=== PATIENT | female | born 1960 | race Caucasian/White ===

== ENCOUNTER → 2017-08-23 | Outpatient (CLI) | payer BC ==
--- NOTE | 2017-08-23 14:12 | MM ---
Reason for exam: screening (asymptomatic). Baseline mammogram. History: Patient is postmenopausal and is nulliparous. Physical Findings: Nurse Summary: 1cm nodule in the left breast at 12 o'clock (nurse eduin). MG 3D Screening Mammo W/Cad Bilateral CC and MLO view(s) were taken. The breast tissue is heterogeneously dense. This may lower the sensitivity of mammography. No suspicious abnormality. These results were verbally communicated with the patient and result sheet given to the patient on 08/23/17. ASSESSMENT: Negative, BI-RAD 1 RECOMMENDATION: Routine screening mammogram of both breasts in 1 year.
--- NOTE | 2017-08-23 16:00 | US ---
EXAMINATION TYPE: US transvaginal DATE OF EXAM: 08/23/2017 COMPARISON: NONE CLINICAL HISTORY: N85.00 Endometrial. Patient has a history of endometriosis. TECHNIQUE: Transvaginal (TV) Date of LMP: 4-5 years ago EXAM MEASUREMENTS: Uterus: 12.3 x 8.5 x 10.7 cm Endometrial Stripe: unable to visualize clearly Right Ovary: unable to visualize Left Ovary: unable to visualize 1. Uterus: Anteverted extremely heterogenous, multiple probable fibroids with largest at left fund us = 5.2 x 4.8 x 5.5cm 2. Endometrium: unable to clearly identify to due heterogenous myometrium 3. Right Ovary: Obscured by overlying bowel gas 4. Left Ovary: Obscured by overlying bowel gas 5. Bilateral Adnexa: appears wnl 6. Posterior cul-de-sac: wnl IMPRESSION: Enlarged and multilobulated diffusely heterogenous uterus most commonly relates to jackeline us uterine leiomyomas with some appearing intramural and others pedunculated and possibly subserosal. These obscure the endometrium. Ovaries are not visualized. Enhanced pelvic MR could be considered fo r further evaluation.
--- NOTE | 2017-08-23 19:46 | ECHOF ---
Referral Reason:R01.1 cardiac murmur MEASUREMENTS -------- HEIGHT: 180.3 cm WEIGHT: 122.5 kg BP: RVIDd: 3.0 cm (< 3.3) IVSd: 1.2 cm (0.6 - 1.1) LVIDd: 4.1 cm (3.9 - 5.3) LVPWd: 1.2 cm (0.6 - 1.1) IVSs: 1.5 cm LVIDs: 2.7 cm LVPWs: 1.5 cm LAESV Index (A-L): 20.77 ml/m Ao Diam: 3.2 cm (2.0 - 3.7) AV Cusp: 1.1 cm (1.5 - 2.6) LA Diam: 3.5 cm (2.7 - 3.8) MV EXCURSION: 16.659 mm (> 18.000) MV EF SLOPE: 79 mm/s (70 - 150) MV E Thomas: 0.91 m/s MV DecT: 274 ms MV A Thomas: 0.96 m/s MV E/A Ratio: 0.95 AV maxP.38 mmHg AV meanP.05 mmHg RAP: 5.00 mmHg RVSP: 14.31 mmHg FINDINGS -------- Sinus rhythm. This was a technically adequate study. The left ventricular size is normal. There is mild concentric left ventricular hypertrophy. Overa ll left ventricular systolic function is normal with, an EF between 55 - 60 %. The right ventricle is normal in size and function. Normal LA size by volume 22+/-6 ml/m2. The right atrium is normal in size. There is moderate aortic valve sclerosis. There is moderate aortic stenosis present. Peak/mean gr adient across the Aortic Valve is 34.38mmHg / 20.05mmHg. The mitral valve leaflets are mildly thickened. Mild mitral regurgitation is present. Trace tricuspid regurgitation present. Right ventricular systolic pressure is normal at < 35 mmHg. There is no evidence of pulmonary hypertension. The pulmonic valve was not well visualized. There is no pulmonic regurgitation present. The aortic root size is normal. Normal inferior vena cava with normal inspiratory collapse consistent with estimated right atrial pre ssure of 5 mmHg. There is no pericardial effusion. CONCLUSIONS -------- 1. Sinus rhythm. 2. This was a technically adequate study. 3. The left ventricular size is normal. 4. There is mild concentric left ventricular hypertrophy. 5. Overall left ventricular systolic function is normal with, an EF between 55 - 60 %. 6. Normal LA size by volume 22+/-6 ml/m2. 7. There is moderate aortic valve sclerosis. 8. There is moderate aortic stenosis present. 9. Peak/mean gradient across the Aortic Valve is 34.38mmHg / 20.05mmHg. 10. The mitral valve leaflets are mildly thickened. 11. Mild mitral regurgitation is present. 12. Trace tricuspid regurgitation present. 13. Right ventricular systolic pressure is normal at < 35 mmHg. 14. The pulmonic valve was not well visualized. 15. There is no pulmonic regurgitation present. 16. The aortic root size is normal. 17. There is no pericardial effusion. VICE PRESIDENT AND PORTFOLIO MANAGER: Messi Conn RDCS
== END | disposition home or self-care (01) ==
LOC: RADMAMWWP 13:22
PROVIDERS: ATTEND Family Medicine
DX: Z12.31 Encounter for screening mammogram for malignant neoplasm of breast (principal); N85.2 Hypertrophy of uterus; I08.1 Rheumatic disorders of both mitral and tricuspid valves
CPT/HCPCS: 76830; 77063; 77067; 93306

== ENCOUNTER → 2017-10-04 | Outpatient (CLI) | payer BC ==
[2017-10-04 14:33] LABS: HCT 38.3 % (34.0-46.0); HGB 12.8 gm/dL (11.4-16.0); MCH 28.7 pg (25.0-35.0); MCHC 33.3 g/dL (31.0-37.0); MCV 86.2 fL (80.0-100.0); Mean Platelet Volume 6.7; Platelet Count 251 k/uL (150-450); RBC 4.44 m/uL (3.80-5.40); RDW 13.5 % (11.5-15.5); WBC 5.4 k/uL (3.8-10.6)
[2017-10-04 14:37] LABS: Anion Gap 7 mmol/L; Blood Urea Nitrogen 16 mg/dL (7-17); Carbon Dioxide 27 mmol/L (22-30); Chloride 105 mmol/L (98-107); Potassium 4.6 mmol/L (3.5-5.1); Sodium 139 mmol/L (137-145)
== END | disposition home or self-care (01) ==
LOC: LABPAT 13:11
PROVIDERS: ATTEND Internal Medicine Interventional Cardiology
DX: Z01.812 Encounter for preprocedural laboratory examination (principal); I35.0 Nonrheumatic aortic (valve) stenosis
CPT/HCPCS: 36415; 80051; 82565; 84520; 85027

== ENCOUNTER → 2017-10-15 | Day surgery (SDC) | payer BC ==
[2017-10-09 09:14] VITALS: BMI 36.3
[~2017-10-15] MED LIST: ALPRAZolam 0.25 MG TAB PO PRN; ASPIRIN 325 MG TAB PO STA; ASPIRIN 81 MG ONE; IV FLUID CONTINUATION 950 ML IV ONE; MIDAZOLAM 2 MG/2 ML VIAL IV ONE; MIDAZOLAM 2 MG/2 ML VIAL ONE; NITROGLYCERIN SL TABS 0.4 MG TAB SUBLINGUAL PRN; SODIUM CHLORIDE 0.9% 1,000 ML in EMPTY BAG 1 BAG IV ONE; fentaNYL (PF) 50 MCG/ML 2 ML AMP ONE
[2017-10-15 07:02] VITALS: TEMP 98.8
[2017-10-15 07:06] LABS: Glucose,Whole Blood 84 mg/dL (75-99)
[2017-10-15] MEDS: BENZOCAINE SPRAY 1 CAN MUCOUS MEM ONE ×2 (07:30→07:34)
[2017-10-15] MEDS: fentaNYL (PF) 50 MCG/ML 2 ML AMP IV ONE ×2 (07:37→07:43)
[2017-10-15] MEDS: MIDAZOLAM 2 MG/2 ML VIAL IV ONE ×2 (07:39→07:41)
[2017-10-15 07:52] VITALS: BP 115/61; PULSE 58; RESP 16
--- NOTE | 2017-10-15 08:44 | ECHOT ---
TRANSESOPHAGEAL ECHOCARDIOGRAM DATE OF SERVICE: October 15, 2017 PERFORMING PHYSICIAN: Torsten Chatterjee MD, television actor. PROCEDURE PERFORMED: Transesophageal echocardiogram. INDICATION: This is a pleasant 57-year-old female patient who was diagnosed recently with moderate aortic stenosis. On physical examination, she had very prominent murmur consistent with at least moderate to severe aortic stenosis with severe decrease in the intensity of S2. Because of that, we decided to pursue with transesophageal echocardiogram as well as heart catheterization. COMPLICATION: None. LEVEL OF SEDATION: Moderate, sedation length of 10 minutes. PROCEDURE DESCRIPTION: After obtaining an informed consent, explaining the procedure, benefits, risks, complications and alternatives, the patient was brought to the transesophageal echocardiogram suite. A pulse oximetry and heart rate monitors were attached to the patient prior to the procedure. The patient's throat was sprayed using lidocaine locally. Following that, the patient was turned into left lateral position. A bite guard was placed and the patient was then sedated with the above doses of Versed and fentanyl in divided doses. Following that, the transesophageal echocardiogram probe was advanced through the bite guard into the mid esophagus where 2-D echocardiogram images as well as color Doppler images of various cardiac structures were obtained. We evaluated the interatrial septum using 2-D echocardiogram, color Doppler, and contrast study. The procedure was completed. There were no complications. FINDINGS: The left ventricular dimension and systolic function appeared to be within normal limits. The ejection fraction appeared to be in the range of 55% to 60% with normal wall motion. The right ventricle is mildly dilated with normal function. The left atrium is dilated. The left atrial appendage appeared to be free from any thrombus. The interatrial septum appeared to be intact. The aortic valve is trileaflet valve and not bicuspid valve with evidence of moderate aortic stenosis by planimetry with an aortic valve area of 1.5 centimeter square. I could not get good gradient transgastric and I have to do the gradient by surface echo and we get a peak gradient of 41 and mean of 24 mmHg. Normal tricuspid valve and pulmonic valve. The mitral valve seems to be also thickened with moderate MR. CONCLUSION: 1. Normal left ventricular dimension and systolic function. 2. Mildly dilated right ventricle with normal function. 3. Normal left atrial appendage without any evidence of thrombus. 4. Intact interatrial septum without any evidence of shunt. 5. Trileaflet aortic valve with evidence of aortic sclerosis and moderate stenosis by planimetry. The gradient by surface echo was in the moderate range and was 24 mmHg. 6. Thickened mitral valve leaflets with moderate MR as well. 7. Moderate tricuspid valve and pulmonic valve. 8. No evidence of pericardial effusion. MMODL / IJN: [id number] /
== END | disposition home or self-care (01) ==
LOC: CATHCVL 06:25
PROVIDERS: ATTEND Internal Medicine Interventional Cardiology
DX: I08.0 Rheumatic disorders of both mitral and aortic valves (principal); Z82.49 Family history of ischemic heart disease and other diseases of the circulatory system; Z79.899 Other long term (current) drug therapy
CPT/HCPCS: 93312; 93320; 93325; J2250; J3010

== ENCOUNTER 2020-02-12 16:01 | Emergency (ER) | payer BC, OTHER ==
--- NOTE | 2020-02-12 16:32 | ED ---
SOB HPI - General Chief Complaint: Shortness of Breath Stated Complaint: Lightheaded,SOB Time Seen by Provider: 02/12/20 16:08 Source: patient Mode of arrival: ambulatory Limitations: no limitations - History of Present Illness Initial Comments: Patient is 59-year-old female who is, in with a chief complaint of shortness of breath and lightheadedness. Patient states for the past month she did having intermittent palpitations along with diaphoretic episodes. She reports particularly over the last week she has developed intermittent episodes of ligh theadedness and they can occur either at rest or exertion. However, she never actually had a syncopal episode. She reports shortness of breath during the same. We are she can "not getting enough air". She denies any chest pain or pressure. She denies any back pain and abdominal pain nausea vomiting diarrhea. Denies one-sided weakness or paresthesias. Denies any visual disturbances or headaches. She reports history of aortic stenosis and a transesophageal echocardiogram in 2018. Denies history of smoking, COPD or asthma. - Related Data Home Medications Medication Instructions Recorded Confirmed Levothyroxine Sodium [Tirosint] 125 mcg PO DAILY 10/09/17 02/12/20 Acetaminophen [Tylenol] 2,000 mg PO BID 02/12/20 02/12/20 Cholecalciferol [Vitamin D3 (25 1,000 unit PO DAILY 02/12/20 02/12/20 Mcg = 1000 Iu)] Allergies Allergy/AdvReac Type Severity Reaction Status Date / Time No Known Allergies Allergy Verified 02/12/20 17:02 Review of Systems ROS Statement: Those systems with pertinent positive or pertinent negative responses have been documented in the HPI. ROS Other: All systems not noted in ROS Statement are negative. Past Medical History Past Medical History: Thyroid Disorder Additional Past Medical History / Comment(s): hx heart murmur, PCOS, Last Myocardial Infarction Date:: unknown History of Any Multi-Drug Resistant Organisms: None Reported Additional Past Surgical History / Comment(s): thyroidectomy,myoectomy, occasional vertigo Past Anesthesia/Blood Transfusion Reactions: No Reported Reaction Additional Past Anesthesia/Blood Transfusion Reaction / Comment(s): occasional vertigo Past Psychological History: ADD/ADHD, Depression Smoking Status: Never smoker Past Alcohol Use History: Occasional Past Drug Use History: None Reported - Past Family History Mother Family Medical History: No Reported History General Exam Limitations: no limitations General appearance: alert, in no apparent distress, obese Head exam: Present: atraumatic, normocephalic, normal inspection Eye exam: Present: normal appearance, PERRL, EOMI Pupils: Present: normal accommodation ENT exam: Present: normal exam, normal oropharynx, mucous membranes moist, TM's normal bilaterally, normal external ear exam Neck exam: Present: normal inspection, full ROM. Absent: tenderness, lymphadenopathy Respiratory exam: Present: normal lung sounds bilaterally. Absent: respiratory distress, wheezes, rales, rhonchi, stridor, chest wall tenderness, accessory muscle use Cardiovascular Exam: Present: regular rate, normal rhythm, systolic murmur. Absent: bradycardia, tachycardia, normal heart sounds, diastolic murmur GI/Abdominal exam: Present: soft. Absent: distended, tenderness, guarding, rebound Extremities exam: Present: normal inspection, full ROM, normal capillary refill, other. Absent: tenderness, pedal edema, joint swelling, calf tenderness Back exam: Present: normal inspection, full ROM. Absent: tenderness, CVA tenderness (R), CVA tenderness (L), muscle spasm, paraspinal tenderness, vertebral tenderness Neurological exam: Present: alert, oriented X3, normal gait Psychiatric exam: Present: normal affect, normal mood Skin exam: Present: warm, dry, intact, normal color Course Vital Signs 02/12/20 16:03 Temperature 98.9 F Pulse Rate 89 Respiratory 24 Rate Blood Pressure 121/79 O2 Sat by Pulse 99 Oximetry - Reevaluation(s) Reevaluation #1: 02/12/20 18:57 Medical record reviewed Medical Decision Making - Medical Decision Making 59-year-old female with history of aortic stenosis presenting to emergency Department with a chief complaint of shortness of breath and lightheadedness. On physical examination, patient is not in any respiratory distress and is otherwise well-appearing. Chest x-ray showed minimal atelectasis. CBC CMP is unremarkable. Coags within normal limits. Initial troponin is negative. D- dimer is negative as well. I suspect the lightheaded episodes are secondary to her aortic stenosis which was prominent on physical exam. She doesn't have any chest pain or pressure. Patient was advised to follow-up with . Strict return problems were thoroughly discussed the patient is worsening agreeable. Case discussed with physician. - Lab Data Result diagrams: 02/12/20 17:15 02/12/20 17:15 Lab Results 02/12/20 02/12/20 02/12/20 Range/Units 17:15 17:15 17:15 WBC 8.8 (3.8-10.6) k/uL RBC 4.60 (3.80-5.40) m/uL Hgb 13.2 (11.4-16.0) gm/dL Hct 40.0 (34.0-46.0) % MCV 87.0 (80.0-100.0) fL MCH 28.6 (25.0-35.0) pg MCHC 32.9 (31.0-37.0) g/dL RDW 13.2 (11.5-15.5) % Plt Count 284 (150-450) k/uL MPV 6.9 Neutrophils % 73 % Lymphocytes % 19 % Monocytes % 5 % Eosinophils % 2 % Basophils % 1 % Neutrophils # 6.4 (1.3-7.7) k/uL Lymphocytes # 1.6 (1.0-4.8) k/uL Monocytes # 0.4 (0-1.0) k/uL Eosinophils # 0.2 (0-0.7) k/uL Basophils # 0.1 (0-0.2) k/uL PT 10.1 (9.0-12.0) sec INR 1.0 (<1.2) APTT 22.7 (22.0-30.0) sec D-Dimer 0.34 (<0.60) mg/L FEU Sodium 139 (137-145) mmol/L Potassium 3.9 (3.5-5.1) mmol/L Chloride 107 (98-107) mmol/L Carbon Dioxide 25 (22-30) mmol/L Anion Gap 7 mmol/L BUN 16 (7-17) mg/dL Creatinine 0.56 (0.52-1.04) mg/dL Est GFR (CKD-EPI)AfAm >90 (>60 ml/min/1.73 sqM) Est GFR (CKD-EPI)NonAf >90 (>60 ml/min/1.73 sqM) Glucose 98 (74-99) mg/dL Calcium 9.3 (8.4-10.2) mg/dL Magnesium 1.8 (1.6-2.3) mg/dL Total Bilirubin 0.5 (0.2-1.3) mg/dL AST 22 (14-36) U/L ALT 13 (4-34) U/L Alkaline Phosphatase 54 (38-126) U/L Troponin I (0.000-0.034) ng/mL Total Protein 7.2 (6.3-8.2) g/dL Albumin 4.1 (3.5-5.0) g/dL Coronavirus (PCR) (Not Detectd) 02/12/20 02/12/20 Range/Units 17:15 17:36 WBC (3.8-10.6) k/uL RBC (3.80-5.40) m/uL Hgb (11.4-16.0) gm/dL Hct (34.0-46.0) % MCV (80.0-100.0) fL MCH (25.0-35.0) pg MCHC (31.0-37.0) g/dL RDW (11.5-15.5) % Plt Count (150-450) k/uL MPV Neutrophils % % Lymphocytes % % Monocytes % % Eosinophils % % Basophils % % Neutrophils # (1.3-7.7) k/uL Lymphocytes # (1.0-4.8) k/uL Monocytes # (0-1.0) k/uL Eosinophils # (0-0.7) k/uL Basophils # (0-0.2) k/uL PT (9.0-12.0) sec INR (<1.2) APTT (22.0-30.0) sec D-Dimer (<0.60) mg/L FEU Sodium (137-145) mmol/L Potassium (3.5-5.1) mmol/L Chloride (98-107) mmol/L Carbon Dioxide (22-30) mmol/L Anion Gap mmol/L BUN (7-17) mg/dL Creatinine (0.52-1.04) mg/dL Est GFR (CKD-EPI)AfAm (>60 ml/min/1.73 sqM) Est GFR (CKD-EPI)NonAf (>60 ml/min/1.73 sqM) Glucose (74-99) mg/dL Calcium (8.4-10.2) mg/dL Magnesium (1.6-2.3) mg/dL Total Bilirubin (0.2-1.3) mg/dL AST (14-36) U/L ALT (4-34) U/L Alkaline Phosphatase (38-126) U/L Troponin I <0.012 (0.000-0.034) ng/mL Total Protein (6.3-8.2) g/dL Albumin (3.5-5.0) g/dL Coronavirus (PCR) Not Detected (Not Detectd) - EKG Data EKG Comments: Sinus rhythm with left axis deviation. Q-wave in lead 3. Ventricular rate 82, IA 166, QRS 80, QTC 418. Disposition Clinical Impression: Shortness of breath Disposition: HOME SELF-CARE Condition: Stable Instructions (If sedation given, give patient instructions): Aortic Stenosis (ED) Additional Instructions: Follow-up with . Return to emergency department if symptoms worsen. Is patient prescribed a controlled substance at d/c from ED?: No Referrals: None,Stated [Primary Care Provider] - 1-2 days Torsten Chatterjee MD [STAFF PHYSICIAN] - 1-2 days Time of Disposition: 19:02
[2020-02-12 17:29] LABS: Basophils # (A) 0.1 k/uL (0-0.2); Basophils % (A) 1 %; Eosinophils # (A) 0.2 k/uL (0-0.7); Eosinophils % (A) 2 %; HGB 13.2 gm/dL (11.4-16.0); Lymphocytes # (A) 1.6 k/uL (1.0-4.8); Lymphocytes % (A) 19 %; MCH 28.6 pg (25.0-35.0); MCHC 32.9 g/dL (31.0-37.0); Mean Platelet Volume 6.9; Monocytes # (A) 0.4 k/uL (0-1.0); Monocytes % (A) 5 %; Neutrophils # (A) 6.4 k/uL (1.3-7.7); Neutrophils % (A) 73 %; Platelet Count 284 k/uL (150-450); RDW 13.2 % (11.5-15.5); WBC 8.8 k/uL (3.8-10.6)
[2020-02-12 17:35] LABS: ALT 13 U/L (4-34); AST 22 U/L (14-36); African American GFR (CKD) >90 (>60 ml/min/1.73 sqM); Albumin 4.1 g/dL (3.5-5.0); Alkaline Phosphatase 54 U/L (38-126); Anion Gap 7 mmol/L; Blood Urea Nitrogen 16 mg/dL (7-17); Calcium 9.3 mg/dL (8.4-10.2); Carbon Dioxide 25 mmol/L (22-30); Chloride 107 mmol/L (98-107); Glucose 98 mg/dL (74-99); Magnesium 1.8 mg/dL (1.6-2.3); Non-African American GFR(CKD) >90 (>60 ml/min/1.73 sqM); Potassium 3.9 mmol/L (3.5-5.1); Sodium 139 mmol/L (137-145); Total Bilirubin 0.5 mg/dL (0.2-1.3); Total Protein 7.2 g/dL (6.3-8.2)
[2020-02-12 17:47] LABS: D-Dimer 0.34 mg/L FEU (<0.60); Partial Thromboplastin Time 22.7 sec (22.0-30.0); Prothrombin Time 10.1 sec (9.0-12.0)
--- NOTE | 2020-02-12 18:12 | XR ---
EXAMINATION TYPE: XR chest 2V DATE OF EXAM: 02/12/2020 COMPARISON: NONE HISTORY: Short of breath TECHNIQUE: 2 views FINDINGS: Heart is normal. There is subsegmental atelectasis in the left midlung. The other lung fiel ds are clear. There are no hilar masses. Mediastinum is normal. There is no pleural effusion. Bony th orax is intact. IMPRESSION: Minimal subsegmental atelectasis. Normal heart.
[2020-02-12 19:05] VITALS: BP 102/89; PULSE 91; RESP 18; TEMP 98.2
== END 2020-02-12 19:09 | disposition home or self-care (01) ==
LOC: EC 16:01
DX: R06.02 Shortness of breath (principal); R42 Dizziness and giddiness; R00.2 Palpitations; R61 Generalized hyperhidrosis; E07.9 Disorder of thyroid, unspecified; Z79.890 Hormone replacement therapy
CPT/HCPCS: 36415; 71046; 80053; 83735; 84484; 85025; 85379; 85610; 85730; 87635; 93005; 99285

== ENCOUNTER → 2020-04-22 | Outpatient (CLI) | payer OTHER ==
[2020-04-22 15:28] LABS: HCT 38.4 % (34.0-46.0); HGB 12.7 gm/dL (11.4-16.0); MCH 28.6 pg (25.0-35.0); MCHC 33.1 g/dL (31.0-37.0); MCV 86.5 fL (80.0-100.0); Mean Platelet Volume 6.7; Platelet Count 236 k/uL (150-450); RBC 4.44 m/uL (3.80-5.40); RDW 13.7 % (11.5-15.5); WBC 4.9 k/uL (3.8-10.6)
[2020-04-22 15:44] LABS: African American GFR (CKD) >90 (>60 ml/min/1.73 sqM); Anion Gap 10 mmol/L; Blood Urea Nitrogen 21 mg/dL (7-17); Carbon Dioxide 26 mmol/L (22-30); Chloride 102 mmol/L (98-107); Non-African American GFR(CKD) >90 (>60 ml/min/1.73 sqM); Potassium 3.9 mmol/L (3.5-5.1); Sodium 138 mmol/L (137-145)
== END | disposition home or self-care (01) ==
LOC: LABPAT 14:41
PROVIDERS: ATTEND Internal Medicine Interventional Cardiology
DX: Z01.818 Encounter for other preprocedural examination (principal); I35.0 Nonrheumatic aortic (valve) stenosis
CPT/HCPCS: 36415; 80051; 82565; 84520; 85027

== ENCOUNTER 2020-04-29 05:59 | Day surgery (SDC) | payer OTHER ==
[2020-04-27 11:07] VITALS: BMI 38.0
[~2020-04-29 05:59] MED LIST changes: +ALPRAZolam 0.5 MG TAB PO PRN; -ASPIRIN 325 MG TAB PO STA; -ASPIRIN 81 MG ONE; -IV FLUID CONTINUATION 950 ML IV ONE; -MIDAZOLAM 2 MG/2 ML VIAL IV ONE; -MIDAZOLAM 2 MG/2 ML VIAL ONE; -fentaNYL (PF) 50 MCG/ML 2 ML AMP ONE
[2020-04-29 06:33] VITALS: RESP 16; TEMP 97.5
[2020-04-29] MEDS ORDERED: ATORVASTATIN 80 MG TAB PO ONE (07:00)
[2020-04-29] MEDS ORDERED: ASPIRIN 325 MG TAB PO ONE (07:00)
[2020-04-29] MEDS ORDERED: fentaNYL (PF) 50 MCG/ML 2 ML AMP ONE (07:07)
[2020-04-29] MEDS ORDERED: LIDOCAINE 1% INJ 10MG/ML (20 ML MDV) ONE (07:17)
[2020-04-29] MEDS ORDERED: VERAPAMIL 2.5 MG/ML 2 ML AMP ONE (07:17)
[2020-04-29] MEDS ORDERED: BENZOCAINE SPRAY 1 CAN MUCOUS MEM ONE (07:38)
[2020-04-29] MEDS: fentaNYL (PF) 50 MCG/ML 2 ML AMP IV ONE ×2 (07:42→07:45)
[2020-04-29] MEDS ORDERED: MIDAZOLAM 2 MG/2 ML VIAL IV ONE ×2 (07:42→07:45)
--- NOTE | 2020-04-29 08:26 | ECHOT ---
TRANSESOPHAGEAL ECHOCARDIOGRAM DATE OF SERVICE: April 29, 2020 PERFORMING PHYSICIAN: Torsten Chatterjee MD. PROCEDURE PERFORMED: Transesophageal echocardiogram. INDICATION: Aortic stenosis. COMPLICATION: None. LEVEL OF SEDATION: Moderate with sedation length of 15 minutes. PROCEDURE DESCRIPTION: After obtaining an informed consent, the patient was brought to the transesophageal echocardiogram suite. A pulse oximetry and heart rate monitors were attached to the patient. Subsequently, the patient's throat was sprayed using lidocaine. After that the patient conscious sedation was initiated and the patient was given a total of 3 mg of Versed and 75 mcg of fentanyl in divided doses. After that I advanced the transesophageal echocardiogram through the bite guard to the mid esophageal where 2D echocardiogram images as well as color Doppler images as well as continuous and pulse-wave Doppler images were obtained from multiple angles. Particular attention was made to the aortic valve. After that, we did interrogate the interatrial septum using contrast study. The procedure was completed without any complication. FINDINGS: The left ventricular dimension and systolic function appeared to be within normal limits. The right ventricular dimension and systolic function appeared to be within normal limits. The left atrium appeared to be mildly dilated. The left atrial appendage appeared to be free from any thrombus. The interatrial septum appeared to have small what seems to be atrial septal defect seen in the inferior portion of it. The aortic valve appeared to be trileaflet valve and the valve is thickened and calcified with evidence of severe aortic stenosis with aortic valve area of 1.82 centimeter square and peak gradient of 60 mmHg and mean gradient of about 30 mmHg. The mitral valve seems to be mildly thickened with moderate mitral regurgitation. There was mild tricuspid regurgitation and mild pulmonic insufficiency seen. No evidence of pericardial effusion seen. CONCLUSION: 1. Severe aortic stenosis with aortic valve area of 1.2 centimeter square. 2. The aortic valve is trileaflet, but appeared to be very thickened and calcified and sclerotic. 3. Normal left ventricular dimension and systolic function. 4. Normal right ventricular dimension and systolic function. 5. Thickened anterior and posterior mitral leaflet with evidence of moderate mitral regurgitation. 6. Normal tricuspid valve and pulmonic valve. 7. Mildly dilated aortic root. 8. No evidence of pericardial effusion. 9. Small atrial septal defect seen. POSTPROCEDURE MANAGEMENT: Proceed with coronary angiogram. MMODL / IJN: [id number] /
[2020-04-29] MEDS ORDERED: LIDOCAINE 1% INJ 10MG/ML (20 ML MDV) SQ ONE (08:34)
[2020-04-29] MEDS ORDERED: HEPARIN SODIUM 1,000 UN/ML (10ML VL) ONE (08:35)
[2020-04-29] MEDS: VERAPAMIL SYRINGE (5 MG/10 ML) INTRAARTER ONE ×2 (08:36→08:40)
[2020-04-29] MEDS ORDERED: IOPAMIDOL-370 125ML BTL INJ ONE (08:40)
[2020-04-29] MEDS ORDERED: RX INFO: IV CONTRAST WAS GIVEN 1 EACH MISC MISCELLANE PRN (08:43)
[2020-04-29] MEDS ORDERED: SODIUM CHLORIDE 0.9% 1,000 ML IV SCH (08:45)
--- NOTE | 2020-04-29 09:14 | CC ---
CARDIAC CATHETERIZATION REPORT DATE OF SERVICE: April 29, 2020 PERFORMING PHYSICIAN: Torsten Chatterjee MD. PROCEDURE PERFORMED: Selective right and left coronary angiogram. INDICATION: Aortic stenosis. COMPLICATION: None. LEVEL OF SEDATION: Moderate with sedation length of 10 minutes. PROCEDURE DESCRIPTION: After obtaining an informed consent, the patient was brought to the cardiac forestry laborer. The right radial artery was cannulated using micropuncture technique and a micropuncture wire passed easily then I placed a 6-[place] sheath at the right radial artery. Selective right and left coronary angiogram performed with JR4 and JL3.5 catheters. Left heart catheterization was not performed. SELECTIVE CORONARY ANGIOGRAM: 1. The RCA is a large caliber vessel and it is a dominant vessel and appears to be angiographically normal. Distally, it bifurcates into PDA and PLV branches, both appear to be angiographically normal. 2. The left main is angiographically normal. It bifurcates into LCX and LAD. 3. The LCX is a large caliber vessel. It is a nondominant vessel and appears to be angiographically normal. 4. The LAD is a large caliber vessel and appears to be also angiographically normal. It gives rise into multiple diagonal branches, but overall all of them appears to be angiographically normal. CONCLUSION: Normal coronary angiogram. POSTPROCEDURE MANAGEMENT: Medical treatment and follow up with the patient. MMODL / IJN: [id number] /
[2020-04-29 13:40] VITALS: PULSE 64
[2020-04-29 13:41] VITALS: BP 132/63
--- NOTE | 2020-05-04 14:56 | CDI ---
Date: 05.03.20 CDS/Water Truck Driver Name: Bisi Nunez Phone: If any questions, call Christine Nassar Division Operations Specialist at [phone] Patient Name: Ariadna Castro Admit Date 04.29.20 Discharge Date: 04.29.20 ATTENTION: The [facility] Coding Staff appreciate your assistance in clarifying documentation. Please respond to the clarification below the line at the bottom and electronically sign. The [facility] Coding staff will review the response and follow-up if needed. Please note: Queries are made part of the Legal Health Record. If you have any questions, please contact the Division Operations Specialist. Dear Dr. Chatterjee In order to code to the greatest specificity and for the greatest reimbursement I need the following information: In the findings section of the JACKIE note you have documented mild tricuspid regurgitation and mild pulmonic insufficiency seen. Then in the conclusion you documented normal tricuspid valve and pulmonic valve. Please clarify. Thank you for your kind consideration. MTDD
== END 2020-04-29 13:35 | disposition home or self-care (01) ==
LOC: CATHCVL 05:59
PROVIDERS: ATTEND Internal Medicine Interventional Cardiology
DX: I08.0 Rheumatic disorders of both mitral and aortic valves (principal); I77.810 Thoracic aortic ectasia; Q21.1 Atrial septal defect; I10 Essential (primary) hypertension; Z79.890 Hormone replacement therapy; Z79.899 Other long term (current) drug therapy; Z82.49 Family history of ischemic heart disease and other diseases of the circulatory system
CPT/HCPCS: 93312; 93320; 93325; 93454; C1769; C1894; J2250; J2001; J3010; J1644; Q9967

== ENCOUNTER → 2021-12-08 | Outpatient (CLI) | payer OTHER ==
--- NOTE | 2021-12-09 19:02 | MM ---
Reason for Exam: Screening (asymptomatic). Last mammogram was performed 4 year(s) and 4 month(s) ago. Patient History: Menarche at age 9. Patient has no children. Postmenopausal. Maternal aunt had breast cancer. Risk Values: Alisa 5 year model risk: 1.9%. NCI Lifetime model risk: 8.4%. Prior Study Comparison: 08/23/2017 Bilateral Screening Mammogram, [facility]. Tissue Density: The breast tissue is almost entirely fat. Findings: Analyzed By CAD. There is no suspicious group of microcalcifications or new suspicious mass in either breast. Overall Assessment: Negative, BI-RAD 1 Management: Screening Mammogram of both breasts in 1 year. A clinical breast exam by your physician is recommended on an annual basis and results should be correlated with mammographic findings. Electronically signed and approved by: Nicanor Magallanes DO
== END | disposition home or self-care (01) ==
LOC: RADMAMWWP 08:15
PROVIDERS: ATTEND Family Medicine
DX: Z12.31 Encounter for screening mammogram for malignant neoplasm of breast (principal); Z78.0 Asymptomatic menopausal state; Z80.3 Family history of malignant neoplasm of breast
CPT/HCPCS: 77063; 77067

== ENCOUNTER → 2023-06-05 | Outpatient (CLI) | payer BC ==
--- NOTE | 2023-06-05 19:16 | BD ---
EXAMINATION TYPE: Axial Bone Density DATE OF EXAM: 06/05/2023 CLINICAL HISTORY: 63 years old Female. ICD-10 CODE: Z13.820 Screening for osteoporosis Height: 69 Weight: 271 FRAX RISK QUESTIONS: Family History (Parent hip fracture): no History of Fracture in Adulthood: yes Secondary Osteoporosis: no RISK FACTORS HISTORY OF: Surgery to Spine/Hip(right/left)/Wrist (right/left): no MEDICATIONS: Thyroid Medications: yes Which medication: Synthroid How Lon+ years Osteoporosis Medications: no EXAM MEASUREMENTS: Bone mineral densitometry was performed using the [employer]x System. Bone mineral density as measured about the Lumbar spine is: ----- L1-L4(G/cm2): 1.543 T Score Values are as follows: ----- L1: 2.3 ----- L2: 2.9 ----- L3: 3.0 ----- L4: 3.8 ----- L1-L4: 3.0 Z Score Values are as follows: ----- L1: 2.6 ----- L2: 3.2 ----- L3: 3.3 ----- L4: 4.2 ----- L1-L4: 3.4 Bone mineral density baseline Bone mineral density about the R hip (g/cm2): 1.024 Bone mineral density about the L hip (g/cm2): 1.036 T Score values are as follows: -----R Neck: -0.3 -----L Neck: -0.5 -----R Total: 0.1 -----L Total: 0.2 Z Score values are as follows: -----R Neck: 0.4 -----L Neck: 0.2 -----R Total: 0.4 -----L Total: 0.5 Bone mineral density baseline FRAX%s: The graph provided illustrates a 6.4% chance for a major osteoporotic fx and a 0.3% chance fo r the hips probability for fx in 10 years time. IMPRESSION: Normal (Values between +1 and -1 indicate normal bone mass). Consider repeating this study in 5 year s or sooner if there is some new clinical indication. NOTE: T-SCORE=SD OF THE YOUNG ADULT MEAN.
--- NOTE | 2023-06-06 18:31 | MM ---
Reason for Exam: Screening (asymptomatic). Last mammogram was performed 1 year(s) and 6 month(s) ago. Patient History: Menarche at age 9. Patient has no children. Postmenopausal. Maternal aunt had breast cancer. Risk Values: Alisa 5 year model risk: 2.0%. NCI Lifetime model risk: 7.9%. Prior Study Comparison: 08/23/2017 Bilateral Screening Mammogram, [facility]. 12/08/2021 Bilateral MG 3D screening mammo w/cad, [facility]. Tissue Density: There are scattered areas of fibroglandular density. Findings: Analyzed By CAD. There is no suspicious group of microcalcifications or new suspicious mass in either breast. Overall Assessment: Negative, BI-RAD 1 Management: Screening Mammogram of both breasts in 1 year. . Patient should continue monthly self-breast exams. A clinical breast exam by your physician is recommended on an annual basis. This exam should not preclude additional follow-up of suspicious palpable abnormalities. Note on Alisa scores and lifetime risk: 1. A Alisa score greater than 3% is considered moderate risk. If this is the case, consider specialist referral to assess eligibility for a risk reducing agent. 2. If overall lifetime risk for the development of breast cancer is 20% or higher, the patient may qualify for future screening with alternating mammogram and breast MRI. Electronically signed and approved by: Denilson Ford M.D. Radiologist
== END | disposition home or self-care (01) ==
LOC: RADMAMWWP 10:37
PROVIDERS: ATTEND Family Medicine
DX: Z12.31 Encounter for screening mammogram for malignant neoplasm of breast (principal); Z13.820 Encounter for screening for osteoporosis; Z80.3 Family history of malignant neoplasm of breast; Z78.0 Asymptomatic menopausal state
CPT/HCPCS: 77063; 77067; 77080